=== PATIENT | male | born 1985 | race Hispanic/Latino ===

== ENCOUNTER 2021-10-03 07:33 | Emergency (ER) | payer BC, SELFPAY ==
[2021-10-03] MEDS ORDERED: Ondansetron ODT 4 MG TAB ONE (08:33)
== END 2021-10-03 09:31 | disposition home or self-care (01) ==
LOC: CSHERS 07:33
DX: U07.1 COVID-19 (principal)
CPT/HCPCS: 87804; 99284; Q0162; U0003; U0005

== ENCOUNTER 2024-11-30 18:44 | Emergency (ER) | payer BC ==
[2024-11-30] MEDS ORDERED: Ketorolac Tromethamine 30 MG (1 mL) VIAL ONE (22:12)
== END 2024-11-30 22:20 | disposition home or self-care (01) ==
LOC: CSHERS 18:44
DX: S56.912A Strain of unspecified muscles, fascia and tendons at forearm level, left arm, initial encounter (principal); X50.9XXA Other and unspecified overexertion or strenuous movements or postures, initial encounter; Y93.B9 Activity, other involving muscle strengthening exercises
CPT/HCPCS: 96372; 99283; J1885